=== PATIENT | female | born 2000 | race African-American/Black ===

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

== ENCOUNTER 2018-01-22 10:47 | Emergency (ER) | payer MEDICAID ==
[~2018-01-22] VITALS: Ht 154.9 cm; Wt 54.0 kg
[2018-01-22] MEDS ORDERED: SODIUM CHLORIDE 0.9% 1,000 ML IV ONE (14:15)
[2018-01-22] MEDS ORDERED: KETOROLAC 30MG/ML VIAL IV STA (14:15)
[2018-01-22 14:45] LABS: BASOPHILS % 0.2 % (0.0-2.0); EOSINOPHILS % 5.6 % (0.0-5.0); HEMATOCRIT. 33.2 % (36.0-48.0); HEMOGLOBIN. 10.9 g/dL (12.0-16.0); LYMPHOCYTES % 49.4 % (20.0-50.0); MEAN CORPUSCULAR HEMOGLOBIN 26.6 pg (28.0-32.0); MEAN CORPUSCULAR VOLUME 80.9 fL (81.0-99.0); MONOCYTES % 9.4 % (2.0-8.0); NEUTROPHILS % 35.4 % (40.0-76.0); PLATELET 195 x1000/uL (130-400); RED BLOOD CELL COUNT 4.11 mill/uL (4.2-5.4); RED CELL DISTRIBUTION WIDTH 15.5 % (11.6-14.6)
[2018-01-22 14:50] LABS: CHLORIDE 104 mEq/L (98-107)
[2018-01-22 14:54] LABS: INR 1.1
[2018-01-22 16:14] LABS: CLARITY URINE CLOUDY (CLEAR); COLOR URINE YELLOW (YELLOW); KETONES URINE NEGATIVE (NEGATIVE); LEUKOCYTE ESTERASE URINE 2+ (NEGATIVE); NITRITE URINE NEGATIVE (NEGATIVE); OCCULT BLOOD URINE NEGATIVE (NEGATIVE); PH URINE 6.5 (4.5-8.0); PROTEIN URINE NEGATIVE (NEGATIVE); SPECIFIC GRAVITY URINE 1.023 (1.005-1.030); UROBILINOGEN URINE 0.2 E.U./dL (0.2-1.0)
[2018-01-22 18:47] VITALS: BP 117/2
== END 2018-01-22 19:09 | disposition home or self-care (01) ==
LOC: ER 12:30
DX: N83.202 Unspecified ovarian cyst, left side (principal); N39.0 Urinary tract infection, site not specified; Z91.040 Latex allergy status; Z91.018 Allergy to other foods; Z91.010 Allergy to peanuts
CPT/HCPCS: 36415; 74176; 76830; 76856; 80053; 81003; 81025; 83690; 84702; 85025; 85610; 96374; 99285; J1885; J7030

== ENCOUNTER 2018-05-02 17:39 | Emergency (ER) | payer MEDICAID, MEDICARE ==
[~2018-05-02] VITALS: Ht 160 cm; Wt 53.0 kg
[2018-05-02] MEDS ORDERED: KETOROLAC 30MG/ML VIAL IV STA (19:46)
[2018-05-02] MEDS ORDERED: SODIUM CHLORIDE 0.9% 1,000 ML IV ONE (19:46)
[2018-05-02] MEDS ORDERED: MORPHINE SULFATE 4 MG/ML CPJ (NOT FOR IM USE) IV STA (19:46)
[2018-05-02] MEDS ORDERED: ONDANSETRON HCL 4MG/2ML INJ IV STA (19:46)
[2018-05-02 23:47] VITALS: BP 113/68
== END 2018-05-02 23:56 | disposition home or self-care (01) ==
LOC: ER 17:39
DX: S83.094A Other dislocation of right patella, initial encounter (principal); D64.9 Anemia, unspecified; J45.909 Unspecified asthma, uncomplicated; F12.10 Cannabis abuse, uncomplicated; W06.XXXA Fall from bed, initial encounter; Y93.89 Activity, other specified; Y92.89 Other specified places as the place of occurrence of the external cause; Y99.8 Other external cause status; Z91.010 Allergy to peanuts; Z91.040 Latex allergy status; Z91.018 Allergy to other foods
CPT/HCPCS: 27560; 73560; 81025; 96374; 96375; 99284; J1885; J2270; J2405; J7030; L1830; Z7610